=== PATIENT | male | born 1965 | race Caucasian/White ===

== ENCOUNTER 2019-12-19 08:43 | Emergency (ER) | payer OTHER ==
[~2019-12-19] VITALS: Ht 162.6 cm; Wt 121.1 kg
[~2019-12-19 08:43] MED LIST: CLINDAMYCIN HC150 MG PO
[2019-12-19] MEDS ORDERED: PREDNISONE5 MG PO (08:57)
[2019-12-19] MEDS ORDERED: IMURAN50 MG PO (08:57)
[2019-12-19] MEDS ORDERED: ORPHENADRINE CITRATE 30 MG/ML VIAL IM ONE (09:00)
[2019-12-19] MEDS ORDERED: HYDROCODONE/APAP 5MG-325MG TAB PO ONE (09:00)
[2019-12-19] MEDS ORDERED: HYDROCODONE/APAP 5MG-325MG TAB ONE (09:05)
[2019-12-19] MEDS ORDERED: ORPHENADRINE CITRATE 30 MG/ML VIAL ONE (09:06)
--- NOTE | 2019-12-19 09:09 | Emergency Department Note ---
History of Present Illnes History of Present Illness Chief Complaint: General Medicine Complaints History of Present Illness This is a 54 year old male PATIENT IN FROM HOME WITH COMPLAINTS OF RIGHT UPPER THIGH PAIN X 10 DAYS; STATES WENT TO URGENT CARE A WEEK AGO AND WAS GIVEN PAIN MEDICATION AND MUSCLE RELAXERS; PATIENT THEN SAW DR VALDEZ ON SATURDAY AND HAD XRAYS TAKEN AND WAS GIVEN DIFFERENT MEDICATION. PATIENT STATES THAT HE STILL HAS PAIN RATED 9/10. PATIENT APPEARS IN NO DISTRESS, RESP EVEN AND NONLABORED, AMBULATORY WITHOUT ASSISTANCE. Historian: Patient Arrival Mode: Car Preforming Machine Operator Required: No Onset (how long ago): day(s) (10) Location: RIGHT LATERAL THIGH Quality: PAIN Radiation: Reports non-radiation Severity: severe Onset quality: gradual Timing of current episode: constant Chronicity: new Context: Denies recent illness Relieving factors: none Exacerbating factors: movement Associated symptoms: Reports denies other symptoms Treatments prior to arrival: none Past Medical/Family History Physician Review I have reviewed the patient's past medical and family history. Any updates have been documented here. Past Medical History Recent Fever: No Clinical Suspicion of Infectio: No New/Unexplained Change in Ment: No Past Medical History: Diabetes, Liver Disease Past Surgical History: None Social History Smoking Cessation: Never Smoker Counseling Performed: No Alcohol Use: None Any Illegal Drug Use: No TB Exposure/Symptoms: No Physically hurt or threatened: No Family History Family history of heart diseas: No Other Last Tetanus: UNKNOWN Any Pre-Existing Lines (PICC,: No Review of Systems Review of Systems Constitutional: Reports no symptoms EENTM: Reports no symptoms Cardiovascular: Reports no symptoms Respiratory: Reports no symptoms Gastrointestinal: Reports no symptoms Genitourinary: Reports no symptoms Musculoskeletal: Reports as per HPI Integumentary: Reports no symptoms Neurological: Reports no symptoms Psychological: Reports no symptoms Endocrine: Reports no symptoms Hematological/Lymphatic: Reports no symptoms Physical Exam Related Data Allergies: Coded Allergies: No Known Allergies (Unverified , 12/19/19) Triage Vital Signs Vital Signs Date Time Temp Pulse Resp B/P (MAP) Pulse Ox O2 Delivery O2 Flow Rate FiO2 12/19/19 08:47 97.6 94 20 144/74 97 Room Air Vital signs reviewed: Yes Physical Exam CONSTITUTIONAL Constitutional: Present well-developed, Present well-nourished HENT HENT: Present normocephalic, Present atraumatic, Present oropharynx clear /moist, Present nose normal HENT L/R: Present left ext ear normal, Present right ext ear normal EYES Eyes: Reports PERRL, Reports conjunctivae normal NECK Neck: Present ROM normal PULMONARY Pulmonary: Present effort normal, Present breath sounds normal CARDIOVASCULAR Cardiovascular: Present regular rhythm, Present heart sounds normal, Present capillary refill normal, Present normal rate, Present palpable pulses, Present strong pulses GASTROINTESTINAL Abdominal: Present soft, Present nontender, Present bowel sounds normal GENITOURINARY Genitourinary: Present exam deferred SKIN Skin: Present warm, Present dry MUSCULOSKELETAL Musculoskeletal: Present ROM normal, Present tenderness (RIGHT LATERAL THIGH, NO CALF TENDERNESS, NO POSTERIOR UPPER LEG TTP), Present swelling (BILATERAL 1+ LE EDEMA) NEUROLOGICAL Neurological: Present alert, Present oriented x 3, Present no gross motor or sensory deficits PSYCHOLOGICAL Psychological: Present mood/affect normal, Present judgement normal Assessment & Plan Medical Decision Making MDM MUSCLE STRAIN - WILL GIVE NORCO 5 AND SHOT OF NORFLEX HERE Reassessment Reassessment DC HOME, DC FLEXERIL (SAYS IT IS NOT HELPING, JUST MAKES HIM SLEEPY), ROBAXIN Assessment & Plan Final Impression: (1) Muscle strain Depart Disposition: HOME, SELF-CARE Last Vital Signs Date Time Temp Pulse Resp B/P (MAP) Pulse Ox O2 Delivery O2 Flow Rate FiO2 12/19/19 08:47 97.6 94 20 144/74 97 Room Air Home Meds Reported Medications Prednisone (PREDNISONE) 5 Mg Tablet, 7.5 MG PO DAILY, #30 TAB 12/19/19 Azathioprine (IMURAN) 50 Mg Tablet, 75 MG PO DAILY 12/19/19 Discontinued Reported Medications Clindamycin Hcl (CLINDAMYCIN HCL) 150 Mg Capsule, 300 MG PO TID for 14 Days 10/08/16 Medications in the ED Orphenadrine Citrate 60 mg ONCE ONCE IM ; Start 12/19/19 at 09:00; Stop 12/19/19 at 09:01 Acetaminophen/ Hydrocodone Bitart 1 ea ONCE ONCE PO ; Start 12/19/19 at 09:00; Stop 12/19/19 at 09:01 Acetaminophen/ Hydrocodone Bitart 1 ea STK-MED ONCE .ROUTE ; Start 12/19/19 at 09:05; Stop 12/19/19 at 08:59; Status DC Orphenadrine Citrate 60 mg STK-MED ONCE .ROUTE ; Start 12/19/19 at 09:06; Stop 12/19/19 at 08:59; Status DC JOEY CHAPA MD Dec 19, 2019 09:09
== END 2019-12-19 09:14 | disposition home or self-care (01) ==
LOC: ER 09:00
DX: M79.651 Pain in right thigh (principal); S76.811A Strain of other specified muscles, fascia and tendons at thigh level, right thigh, initial encounter; E11.9 Type 2 diabetes mellitus without complications; K76.9 Liver disease, unspecified
CPT/HCPCS: 99283; J2360

== ENCOUNTER 2021-02-16 22:46 | Emergency (ER) | payer OTHER ==
[~2021-02-16] VITALS: Ht 162.6 cm; Wt 121.1 kg
[~2021-02-16 22:46] MED LIST changes: +IMURAN50 MG PO; +PREDNISONE5 MG PO
[2021-02-16] MEDS ORDERED: SOTROVIMAB 500 MG in SODIUM CHLORIDE 0.9% 100 ML IV ONE (23:00)
== END 2021-02-17 00:31 | disposition home or self-care (01) ==
LOC: ER 22:51
DX: U07.1 COVID-19 (principal); R05.9 Cough, unspecified; E11.9 Type 2 diabetes mellitus without complications; K76.9 Liver disease, unspecified
CPT/HCPCS: 99284

== ENCOUNTER 2021-06-20 12:28 | Inpatient (IN) | payer OTHER ==
[~2021-06-20] VITALS: Ht 162.6 cm; Wt 129.7 kg
[2021-06-20] MEDS ORDERED: BISMUTH SUBSALICYLATE 262 MG/15 ML 8OZ BTL PO PRN (14:30)
[2021-06-20] MEDS ORDERED: ONDANSETRON HCL INJ 2MG/ML 2ML 2 MG/ML VIAL IV PRN (14:30)
[2021-06-20] MEDS ORDERED: MAGNESIUM HYDROXIDE 30 ML UDC PO PRN (14:30)
[2021-06-20] MEDS ORDERED: LANTUS 3ML100 UNITS/ SC (15:01)
[2021-06-20] MEDS ORDERED: DOXYCYCLINE HY100 MG PO (15:01)
[2021-06-20] MEDS ORDERED: ZETIA10 MG PO (15:01)
[2021-06-20] MEDS ORDERED: LOSARTAN POTASS25 MG PO (15:01)
[2021-06-20] MEDS ORDERED: CIPRO250 MG PO (15:01)
[2021-06-20] MEDS ORDERED: GLIMEPIRIDE2 MG PO (15:01)
[2021-06-20] MEDS ORDERED: PREDNISONE10 MG PO (15:01)
[2021-06-20] MEDS ORDERED: HUMALOG100 UNIT/1 SC (15:01)
[2021-06-20] MEDS ORDERED: DEXTROSE 50% SYRINGE 50 ML IV PRN (15:15)
[2021-06-20 15:59] VITALS: BP 142/73
[2021-06-20 16:00] VITALS: BP 109/58
[2021-06-20 16:16] LABS: BASOPHILS # (AUTO) 0.1 (0.0-0.1); BASOPHILS % 0.6 % (0.0-1.0); EOSINOPHILS # (AUTO) 0.1 (0.0-0.4); EOSINOPHILS % 0.9 % (0.0-6.0); HEMATOCRIT 37.4 % (38.2-49.6); HEMOGLOBIN 12.4 g/dL (14.0-18.0); LYMPHOCYTES # (AUTO) 1.4 (1.0-3.2); MEAN CORPUSCULAR HEMOGLOBIN 28.8 pg (28-32); MEAN CORPUSCULAR HGB CONC 33.2 g/dL (31-35); MONOCYTES # (AUTO) 0.9 (0.2-0.8); MONOCYTES % 7.8 % (4.4-11.3); NEUTROPHILS # (AUTO) 7.8 (2.1-6.9); NEUTROPHILS % 71.7 % (38.7-80.0); PLATELET COUNT 343 x10e3/uL (140-360); RED CELL DISTRIBUTION WIDTH 12.4 % (11.7-14.4)
[2021-06-20 16:38] LABS: ALBUMIN 2.4 g/dL (3.5-5.0); ALBUMIN/GLOBULIN RATIO 0.5 (0.8-2.0); ANION GAP 14.3 mmol/L (8-16); CALCIUM 9.5 mg/dL (8.4-10.2); CREATININE, SERUM 1.45 mg/dL (0.72-1.25); POTASSIUM 4.3 mmol/L (3.5-5.1)
[2021-06-20] MEDS: INSULIN LISPRO 100 UNIT/1 ML 3ML VIAL SQ SCH ×2 (17:09→21:49)
[2021-06-20] MEDS ORDERED: SODIUM CHLORIDE 0.9% 250ML 250 ML ONE (17:11)
[2021-06-20 17:39] LABS: EOSINOPHILS % (MANUAL) 2 % (0-7); LYMPHOCYTES % (MANUAL) 13 % (19-48); MONOCYTES % (MANUAL) 1 % (3.4-9.0); NEUTROPHILS % (MANUAL) 77 % (40-74); TOXIC GRANULATION SLIGHT
[2021-06-20 17:44] LABS: PLATELET ESTIMATE ADEQUATE; PLATELET MORPHOLOGY COMMENT NORMAL; RBC MORPHOLOGY COMMENT NORMAL
[2021-06-20 20:00] VITALS: BP 154/96
[2021-06-20 21:00] VITALS: BP 139/85
[2021-06-21 00:24] VITALS: BP 139/85
[2021-06-21] MEDS ORDERED: HYDROCODONE/APAP 10MG-325MG TAB PO PRN (05:15)
[2021-06-21] MEDS: ACETAMINOPHEN 325 MG TAB PO PRN ×2 (05:25→22:07)
[2021-06-21 07:57] VITALS: BP 158/79
[2021-06-21] MEDS: EZETIMIBE 10 MG TAB PO SCH (08:12)
[2021-06-21] MEDS: LOSARTAN POTASSIUM 25 MG TAB PO SCH (08:12)
[2021-06-21] MEDS: PREDNISONE 10 MG TAB PO SCH (08:12)
[2021-06-21] MEDS: GLIMEPIRIDE 2 MG TAB PO SCH (08:13)
[2021-06-21] MEDS: INSULIN LISPRO 100 UNIT/1 ML 3ML VIAL SQ SCH ×4 (08:25→21:19)
[2021-06-21 12:14] VITALS: BP 172/84
[2021-06-21] MEDS: HYDRALAZINE HCL 20 MG/ML VIAL IV PRN (12:50)
[2021-06-21] MEDS: Vancomycin IV 1.25 GM in SODIUM CHLORIDE 0.9% 250ML 250 ML IV SCH (15:50)
[2021-06-21 20:04] VITALS: BP 142/73
[2021-06-21 20:30] VITALS: BP 142/73
[2021-06-21] MEDS: INSULIN GLARGINE 100 UNITS/ML VIAL SQ SCH (21:19)
[2021-06-22 05:42] VITALS: BP 155/82
[2021-06-22] MEDS: INSULIN LISPRO 100 UNIT/1 ML 3ML VIAL SQ SCH ×4 (07:30→21:30)
[2021-06-22] MEDS: EZETIMIBE 10 MG TAB PO SCH (08:21)
[2021-06-22] MEDS: GLIMEPIRIDE 2 MG TAB PO SCH (08:21)
[2021-06-22] MEDS: PREDNISONE 10 MG TAB PO SCH (08:21)
[2021-06-22] MEDS: LOSARTAN POTASSIUM 25 MG TAB PO SCH (08:21)
[2021-06-22] MEDS: ACETAMINOPHEN 325 MG TAB PO PRN ×2 (08:22→13:30)
[2021-06-22 08:25] VITALS: BP 134/66
[2021-06-22] MEDS: Vancomycin IV 1.25 GM in SODIUM CHLORIDE 0.9% 250ML 250 ML IV SCH (13:23)
[2021-06-22 20:12] VITALS: BP 126/73
[2021-06-22 21:00] VITALS: BP 126/73
[2021-06-22] MEDS: INSULIN GLARGINE 100 UNITS/ML VIAL SQ SCH (21:30)
[2021-06-22 23:59] VITALS: BP 112/58
[2021-06-23 05:37] VITALS: BP 112/56
[2021-06-23 06:14] LABS: BASOPHILS # (AUTO) 0.1 (0.0-0.1); BASOPHILS % 0.6 % (0.0-1.0); EOSINOPHILS # (AUTO) 0.1 (0.0-0.4); EOSINOPHILS % 1.6 % (0.0-6.0); HEMATOCRIT 34.1 % (38.2-49.6); HEMOGLOBIN 11.2 g/dL (14.0-18.0); LYMPHOCYTES # (AUTO) 1.4 (1.0-3.2); LYMPHOCYTES % 16.4 % (18.0-39.1); MEAN CORPUSCULAR HEMOGLOBIN 28.6 pg (28-32); MEAN CORPUSCULAR HGB CONC 32.8 g/dL (31-35); MEAN CORPUSCULAR VOLUME 87.2 fL (81-99); MONOCYTES # (AUTO) 0.7 (0.2-0.8); MONOCYTES % 8.4 % (4.4-11.3); NEUTROPHILS # (AUTO) 5.9 (2.1-6.9); NEUTROPHILS % 68.2 % (38.7-80.0); PLATELET COUNT 314 x10e3/uL (140-360); RED BLOOD COUNT 3.91 x10e6/uL (4.3-5.7); RED CELL DISTRIBUTION WIDTH 12.3 % (11.7-14.4)
[2021-06-23 06:35] LABS: ALBUMIN 2.3 g/dL (3.5-5.0); ALBUMIN/GLOBULIN RATIO 0.6 (0.8-2.0); ANION GAP 10.9 mmol/L (8-16); CALCIUM 8.5 mg/dL (8.4-10.2); CREATININE, SERUM 1.17 mg/dL (0.72-1.25); POTASSIUM 3.9 mmol/L (3.5-5.1)
[2021-06-23] MEDS: INSULIN LISPRO 100 UNIT/1 ML 3ML VIAL SQ SCH ×4 (07:30→21:10)
[2021-06-23 07:54] VITALS: BP 144/91
[2021-06-23 08:06] VITALS: BP 144/91
[2021-06-23] MEDS ORDERED: BUPIVACAINE HCL 0.5% INJ 30 ML VIAL INJ ONE (08:41)
[2021-06-23] MEDS ORDERED: DEXAMETHASONE SOD PHOS INJ 4 MG/ML SDV ONE ×2 (08:41→11:57)
[2021-06-23] MEDS ORDERED: Vancomycin IV 1 GM VIAL ONE (08:41)
[2021-06-23] MEDS ORDERED: NEOSTIGMINE 1 MG/ML 10ML VIAL ONE (08:41)
[2021-06-23] MEDS: GLIMEPIRIDE 2 MG TAB PO SCH (11:14)
[2021-06-23] MEDS: PREDNISONE 10 MG TAB PO SCH (11:14)
[2021-06-23] MEDS: EZETIMIBE 10 MG TAB PO SCH (11:14)
[2021-06-23] MEDS: LOSARTAN POTASSIUM 25 MG TAB PO SCH (11:14)
[2021-06-23 11:38] VITALS: BP 156/80
[2021-06-23] MEDS ORDERED: SEVOFLURANE INHAL SOLN 250 ML PEN BTL ONE (11:57)
[2021-06-23] MEDS ORDERED: PROPOFOL IV EMULSION 10 MG/ML 20 ML VIAL ONE (11:57)
[2021-06-23] MEDS ORDERED: ONDANSETRON HCL INJ 2MG/ML 2ML 2 MG/ML VIAL ONE (11:57)
[2021-06-23] MEDS ORDERED: LIDOCAINE HCL 2% LOCAL INJ 5 ML SDV VIAL INJ ONE (11:57)
[2021-06-23] MEDS ORDERED: POVIDONE IODINE 0.05% 0.05 % ML PO ONE (11:57)
[2021-06-23] MEDS ORDERED: KETOROLAC TROMETHAMINE 30 MG/ML VIAL ONE (11:57)
[2021-06-23] MEDS ORDERED: MIDAZOLAM HCL 2 MG/2 ML VIAL ONE (12:46)
[2021-06-23] MEDS ORDERED: FENTANYL CITRATE/PF 100MCG/2 ML INJ ONE (12:46)
[2021-06-23] MEDS: Vancomycin IV 1.25 GM in SODIUM CHLORIDE 0.9% 250ML 250 ML IV SCH (14:56)
[2021-06-23] MEDS ORDERED: SODIUM CHLORIDE 0.9% 250ML 250 ML ONE (15:02)
[2021-06-23 15:44] VITALS: BP 148/84
[2021-06-23 20:00] VITALS: BP 164/92
[2021-06-23] MEDS: INSULIN GLARGINE 100 UNITS/ML VIAL SQ SCH (21:11)
[2021-06-24] VITALS (8 sets, daily range): BP systolic 137–161; BP diastolic 66–94
[2021-06-24] MEDS: INSULIN LISPRO 100 UNIT/1 ML 3ML VIAL SQ SCH ×4 (07:30→22:19)
[2021-06-24] MEDS: LOSARTAN POTASSIUM 25 MG TAB PO SCH (08:35)
[2021-06-24] MEDS: PREDNISONE 10 MG TAB PO SCH (08:35)
[2021-06-24] MEDS: EZETIMIBE 10 MG TAB PO SCH (08:35)
[2021-06-24] MEDS: GLIMEPIRIDE 2 MG TAB PO SCH (08:35)
[2021-06-24] MEDS: ACETAMINOPHEN 325 MG TAB PO PRN (08:48)
[2021-06-24] MEDS: Vancomycin IV 1.25 GM in SODIUM CHLORIDE 0.9% 250ML 250 ML IV SCH (15:04)
[2021-06-24] MEDS: INSULIN GLARGINE 100 UNITS/ML VIAL SQ SCH (22:20)
[2021-06-25] VITALS (7 sets, daily range): BP systolic 128–177; BP diastolic 57–96
[2021-06-25] MEDS: ACETAMINOPHEN 325 MG TAB PO PRN ×3 (00:06→22:27)
[2021-06-25] MEDS: INSULIN LISPRO 100 UNIT/1 ML 3ML VIAL SQ SCH ×4 (07:30→21:39)
[2021-06-25] MEDS: LOSARTAN POTASSIUM 25 MG TAB PO SCH (09:35)
[2021-06-25] MEDS: GLIMEPIRIDE 2 MG TAB PO SCH (09:35)
[2021-06-25] MEDS: EZETIMIBE 10 MG TAB PO SCH (09:36)
[2021-06-25] MEDS: PREDNISONE 10 MG TAB PO SCH (09:36)
[2021-06-25] MEDS: Vancomycin IV 1.25 GM in SODIUM CHLORIDE 0.9% 250ML 250 ML IV SCH (13:48)
[2021-06-25] MEDS: INSULIN GLARGINE 100 UNITS/ML VIAL SQ SCH (21:39)
[2021-06-25] MEDS: HYDRALAZINE HCL 20 MG/ML VIAL IV PRN (21:54)
[2021-06-26] VITALS (9 sets, daily range): BP systolic 126–168; BP diastolic 60–93
[2021-06-26] MEDS: ACETAMINOPHEN 325 MG TAB PO PRN ×3 (04:51→22:58)
[2021-06-26 04:59] LABS: BASOPHILS % 0.5 % (0.0-1.0); EOSINOPHILS # (AUTO) 0.1 (0.0-0.4); EOSINOPHILS % 1.4 % (0.0-6.0); HEMATOCRIT 32.3 % (38.2-49.6); HEMOGLOBIN 10.6 g/dL (14.0-18.0); LYMPHOCYTES # (AUTO) 1.5 (1.0-3.2); LYMPHOCYTES % 17.5 % (18.0-39.1); MEAN CORPUSCULAR HEMOGLOBIN 28.7 pg (28-32); MEAN CORPUSCULAR HGB CONC 32.8 g/dL (31-35); MEAN CORPUSCULAR VOLUME 87.5 fL (81-99); MONOCYTES # (AUTO) 0.8 (0.2-0.8); MONOCYTES % 9.1 % (4.4-11.3); NEUTROPHILS # (AUTO) 5.8 (2.1-6.9); NEUTROPHILS % 69.1 % (38.7-80.0); PLATELET COUNT 243 x10e3/uL (140-360); RED BLOOD COUNT 3.69 x10e6/uL (4.3-5.7); RED CELL DISTRIBUTION WIDTH 12.5 % (11.7-14.4)
[2021-06-26 05:27] LABS: ALBUMIN 2.2 g/dL (3.5-5.0); ALBUMIN/GLOBULIN RATIO 0.6 (0.8-2.0); ANION GAP 10.9 mmol/L (8-16); CALCIUM 8.3 mg/dL (8.4-10.2); CREATININE, SERUM 0.89 mg/dL (0.72-1.25); POTASSIUM 3.9 mmol/L (3.5-5.1)
[2021-06-26] MEDS: INSULIN LISPRO 100 UNIT/1 ML 3ML VIAL SQ SCH ×4 (07:30→21:40)
[2021-06-26] MEDS: LOSARTAN POTASSIUM 25 MG TAB PO SCH (08:52)
[2021-06-26] MEDS: GLIMEPIRIDE 2 MG TAB PO SCH (08:52)
[2021-06-26] MEDS: PREDNISONE 10 MG TAB PO SCH (08:52)
[2021-06-26] MEDS: EZETIMIBE 10 MG TAB PO SCH (08:52)
[2021-06-26] MEDS: Vancomycin IV 1.25 GM in SODIUM CHLORIDE 0.9% 250ML 250 ML IV SCH (13:00)
[2021-06-26] MEDS: INSULIN GLARGINE 100 UNITS/ML VIAL SQ SCH (21:40)
[2021-06-27] VITALS: BP 151/77
[2021-06-27 04:00] VITALS: BP 124/61
[2021-06-27] MEDS: INSULIN LISPRO 100 UNIT/1 ML 3ML VIAL SQ SCH ×2 (07:30→14:02)
[2021-06-27 07:57] VITALS: BP 177/93
[2021-06-27] MEDS: GLIMEPIRIDE 2 MG TAB PO SCH (08:57)
[2021-06-27] MEDS: PREDNISONE 10 MG TAB PO SCH (08:59)
[2021-06-27] MEDS: EZETIMIBE 10 MG TAB PO SCH (08:59)
[2021-06-27] MEDS: LOSARTAN POTASSIUM 25 MG TAB PO SCH (09:00)
[2021-06-27] MEDS: HYDRALAZINE HCL 20 MG/ML VIAL IV PRN (09:07)
[2021-06-27 11:58] VITALS: BP 149/78
[2021-06-27] MEDS: Vancomycin IV 1.25 GM in SODIUM CHLORIDE 0.9% 250ML 250 ML IV SCH (14:01)
[2021-06-27 15:31] VITALS: BP 161/89
== END 2021-06-27 18:12 | disposition home or self-care (01) | DRG 623 ==
LOC: MED/SURG2 13:19
PROVIDERS: ADMIT Internal Medicine; ATTEND Internal Medicine
PROC: 0JDR0ZZ Extraction of Left Foot Subcutaneous Tissue and Fascia, Open Approach (ICD-10-PCS; 2021-06-23)
PROC: 0JBR0ZZ Excision of Left Foot Subcutaneous Tissue and Fascia, Open Approach (ICD-10-PCS; 2021-06-23)
PROC: 0QBP0ZX Excision of Left Metatarsal, Open Approach, Diagnostic (ICD-10-PCS; 2021-06-23)
PROC: 0HBNXZZ Excision of Left Foot Skin, External Approach (ICD-10-PCS; 2021-06-23)
PROC: 02HV33Z Insertion of Infusion Device into Superior Vena Cava, Percutaneous Approach (ICD-10-PCS; principal; 2021-06-23 09:34)
DX: E11.69 Type 2 diabetes mellitus with other specified complication (principal); E11.52 Type 2 diabetes mellitus with diabetic peripheral angiopathy with gangrene; Z68.42 Body mass index [BMI] 45.0-49.9, adult; M86.8X7 Other osteomyelitis, ankle and foot; I96 Gangrene, not elsewhere classified; E11.621 Type 2 diabetes mellitus with foot ulcer; E11.22 Type 2 diabetes mellitus with diabetic chronic kidney disease; I12.9 Hypertensive chronic kidney disease with stage 1 through stage 4 chronic kidney disease, or unspecified chronic kidney disease; N18.30 Chronic kidney disease, stage 3 unspecified; Z79.899 Other long term (current) drug therapy; E66.01 Morbid (severe) obesity due to excess calories; E78.5 Hyperlipidemia, unspecified; B95.2 Enterococcus as the cause of diseases classified elsewhere; B95.5 Unspecified streptococcus as the cause of diseases classified elsewhere; Z20.822 Contact with and (suspected) exposure to COVID-19; B95.8 Unspecified staphylococcus as the cause of diseases classified elsewhere
CPT/HCPCS: 36415; 36569; 71045; 76000; 80053; 80202; 82948; 83036; 85025; 87040; 87071; 87075; 87186; 87205; 93005; 93922; 93926; 93970; 94799; 96372; 99251; J0360; J1100; J1815; J1885; J2001; J2250; J2405; J2543; J2710; J3010; J3370; J7050; J7512; U0002

== ENCOUNTER → 2021-06-29 | Outpatient (CLI) | payer OTHER ==
[~2021-06-29] MED LIST changes: +CIPRO250 MG PO; +DOXYCYCLINE HY100 MG PO; +GLIMEPIRIDE2 MG PO; +HUMALOG100 UNIT/1 SC; +LANTUS 3ML100 UNITS/ SC; +LOSARTAN POTASS25 MG PO; +PREDNISONE10 MG PO; +ZETIA10 MG PO
== END ==
LOC: WCC 08:39
PROVIDERS: ATTEND Podiatrist Foot & Ankle Surgery
DX: T81.89XA Other complications of procedures, not elsewhere classified, initial encounter (principal); Y83.8 Other surgical procedures as the cause of abnormal reaction of the patient, or of later complication, without mention of misadventure at the time of the procedure; M86.172 Other acute osteomyelitis, left ankle and foot; E11.65 Type 2 diabetes mellitus with hyperglycemia; L03.818 Cellulitis of other sites; R60.0 Localized edema; I10 Essential (primary) hypertension; E78.5 Hyperlipidemia, unspecified; B96.89 Other specified bacterial agents as the cause of diseases classified elsewhere; E66.01 Morbid (severe) obesity due to excess calories

== ENCOUNTER → 2021-07-04 | Outpatient (CLI) | payer OTHER | LOC: WCC 10:30 | PROVIDERS: ATTEND Podiatrist Foot & Ankle Surgery | DX: T81.89XA Other complications of procedures, not elsewhere classified, initial encounter (principal); Y83.8 Other surgical procedures as the cause of abnormal reaction of the patient, or of later complication, without mention of misadventure at the time of the procedure; M86.172 Other acute osteomyelitis, left ankle and foot; E11.65 Type 2 diabetes mellitus with hyperglycemia; L03.818 Cellulitis of other sites; R60.0 Localized edema; I10 Essential (primary) hypertension; E78.5 Hyperlipidemia, unspecified; B96.89 Other specified bacterial agents as the cause of diseases classified elsewhere; E66.01 Morbid (severe) obesity due to excess calories | CPT/HCPCS: 83036; 84134 ==

== ENCOUNTER → 2021-07-11 | Outpatient (CLI) | payer OTHER | LOC: WCC 13:43 | PROVIDERS: ATTEND Podiatrist Foot & Ankle Surgery | DX: T81.89XA Other complications of procedures, not elsewhere classified, initial encounter (principal); Y83.8 Other surgical procedures as the cause of abnormal reaction of the patient, or of later complication, without mention of misadventure at the time of the procedure; E11.621 Type 2 diabetes mellitus with foot ulcer; E11.65 Type 2 diabetes mellitus with hyperglycemia; M86.172 Other acute osteomyelitis, left ankle and foot; L97.421 Non-pressure chronic ulcer of left heel and midfoot limited to breakdown of skin; L03.818 Cellulitis of other sites; R60.0 Localized edema; I10 Essential (primary) hypertension; E78.5 Hyperlipidemia, unspecified; B96.89 Other specified bacterial agents as the cause of diseases classified elsewhere; E66.01 Morbid (severe) obesity due to excess calories ==

== ENCOUNTER 2021-07-15 20:39 | Observation (INO) | payer OTHER ==
[~2021-07-15] VITALS: Ht 162.6 cm; Wt 129.7 kg
[2021-07-15] MEDS ORDERED: ONDANSETRON HCL INJ 2MG/ML 2ML 2 MG/ML VIAL IV PRN (21:00)
[2021-07-15] MEDS ORDERED: SODIUM CHLORIDE FLUSH 10 ML SYR INJ PRN (21:00)
[2021-07-15] MEDS ORDERED: DEXTROSE 50% SYRINGE 50 ML IV PRN (21:00)
[2021-07-15] MEDS: INSULIN REGULAR, HUMAN 100 UNIT/1 ML SQ SCH (21:00)
[2021-07-15 21:08] LABS: BASOPHILS % 0.3 % (0.0-1.0); EOSINOPHILS # (AUTO) 0.1 (0.0-0.4); HEMATOCRIT 31.1 % (38.2-49.6); HEMOGLOBIN 10.3 g/dL (14.0-18.0); LYMPHOCYTES # (AUTO) 0.8 (1.0-3.2); LYMPHOCYTES % 11.4 % (18.0-39.1); MEAN CORPUSCULAR HEMOGLOBIN 28.2 pg (28-32); MEAN CORPUSCULAR HGB CONC 33.1 g/dL (31-35); MEAN CORPUSCULAR VOLUME 85.2 fL (81-99); MONOCYTES % 15.3 % (4.4-11.3); NEUTROPHILS # (AUTO) 4.6 (2.1-6.9); NEUTROPHILS % 67.5 % (38.7-80.0); PLATELET COUNT 176 x10e3/uL (140-360); RED BLOOD COUNT 3.65 x10e6/uL (4.3-5.7); RED CELL DISTRIBUTION WIDTH 13.9 % (11.7-14.4)
[2021-07-15 21:33] LABS: ALBUMIN 2.3 g/dL (3.5-5.0); CALCIUM 8.8 mg/dL (8.4-10.2); POTASSIUM 4.2 mmol/L (3.5-5.1)
[2021-07-15 22:11] LABS: ANION GAP 15.2 mmol/L (8-16); CREATININE, SERUM 1.52 mg/dL (0.72-1.25)
[2021-07-15 22:12] LABS: ALBUMIN/GLOBULIN RATIO 0.5 (0.8-2.0)
[2021-07-15] MEDS: Vancomycin IV 1 GM in SODIUM CHLORIDE 0.9% 250ML 250 ML IV SCH (23:19)
[2021-07-16] MEDS ORDERED: ACETAMINOPHEN 325 MG TAB PO ONE (03:15)
[2021-07-16] MEDS ORDERED: ACETAMINOPHEN 325 MG TAB ONE (03:19)
[2021-07-16] MEDS: INSULIN REGULAR, HUMAN 100 UNIT/1 ML SQ SCH ×4 (07:30→21:00)
[2021-07-16] MEDS: PREDNISONE 10 MG TAB PO SCH (09:00)
[2021-07-16] MEDS: LOSARTAN POTASSIUM 25 MG TAB PO SCH (09:00)
[2021-07-16] MEDS ORDERED: GLIMEPIRIDE 2 MG TAB PO SCH (09:00)
[2021-07-16] MEDS: Vancomycin IV 1 GM in SODIUM CHLORIDE 0.9% 250ML 250 ML IV SCH ×2 (09:25→22:00)
[2021-07-16 09:34] LABS: BASOPHILS % 0.5 % (0.0-1.0); EOSINOPHILS # (AUTO) 0.1 (0.0-0.4); EOSINOPHILS % 1.3 % (0.0-6.0); HEMATOCRIT 30.7 % (38.2-49.6); LYMPHOCYTES # (AUTO) 0.7 (1.0-3.2); LYMPHOCYTES % 12.4 % (18.0-39.1); MEAN CORPUSCULAR HEMOGLOBIN 27.9 pg (28-32); MEAN CORPUSCULAR HGB CONC 32.6 g/dL (31-35); MEAN CORPUSCULAR VOLUME 85.8 fL (81-99); MONOCYTES # (AUTO) 0.9 (0.2-0.8); MONOCYTES % 15.3 % (4.4-11.3); NEUTROPHILS # (AUTO) 3.9 (2.1-6.9); NEUTROPHILS % 65.8 % (38.7-80.0); PLATELET COUNT 176 x10e3/uL (140-360); RED BLOOD COUNT 3.58 x10e6/uL (4.3-5.7); RED CELL DISTRIBUTION WIDTH 13.8 % (11.7-14.4)
[2021-07-16 10:11] LABS: ALBUMIN 2.1 g/dL (3.5-5.0); ALBUMIN/GLOBULIN RATIO 0.5 (0.8-2.0); ANION GAP 13.9 mmol/L (8-16); CALCIUM 8.3 mg/dL (8.4-10.2); CREATININE, SERUM 1.32 mg/dL (0.72-1.25); POTASSIUM 3.9 mmol/L (3.5-5.1)
[2021-07-16] MEDS: EZETIMIBE 10 MG TAB PO SCH (10:40)
[2021-07-16 17:12] VITALS: BP 154/77
[2021-07-16 17:19] VITALS: BP 154/77
[2021-07-16 20:00] VITALS: BP_SYST 112; BP_SYST 145; BP_DIAS 71; BP_DIAS 80
[2021-07-16 21:00] VITALS: BP 112/71
[2021-07-16] MEDS ORDERED: SODIUM CHLORIDE 0.9% 250ML 250 ML ONE (22:34)
[2021-07-17] VITALS: BP 124/77
[2021-07-17 04:00] VITALS: BP_SYST 120; BP_SYST 130; BP_DIAS 53; BP_DIAS 73
[2021-07-17] MEDS: INSULIN REGULAR, HUMAN 100 UNIT/1 ML SQ SCH ×3 (07:30→16:30)
[2021-07-17] MEDS ORDERED: SODIUM CHLORIDE 0.9% 250ML 250 ML ONE (07:31)
[2021-07-17 07:48] VITALS: BP 137/79
[2021-07-17 08:00] VITALS: BP 137/79
[2021-07-17] MEDS ORDERED: GLIMEPIRIDE 2 MG TAB PO SCH (08:00)
[2021-07-17] MEDS: LOSARTAN POTASSIUM 25 MG TAB PO SCH (08:10)
[2021-07-17] MEDS: PREDNISONE 10 MG TAB PO SCH (08:11)
[2021-07-17] MEDS: EZETIMIBE 10 MG TAB PO SCH (08:11)
[2021-07-17] MEDS: Vancomycin IV 1 GM in SODIUM CHLORIDE 0.9% 250ML 250 ML IV SCH (10:11)
[2021-07-17 11:27] VITALS: BP 159/87
[2021-07-17 16:37] VITALS: BP 146/98
[2021-07-17] MEDS ORDERED: ONDANSETRON HCL 4 MG ORAL DISINTEGRATING TAB PO PRN (18:00)
== END 2021-07-17 18:40 | disposition home or self-care (01) ==
LOC: ER 20:43 → ERHOLD 21:42 → UNDODISOB 07-16 16:50 → MED/SURG2 07-16 16:50
PROVIDERS: ADMIT Internal Medicine; ATTEND Internal Medicine
DX: E11.621 Type 2 diabetes mellitus with foot ulcer (principal); E11.22 Type 2 diabetes mellitus with diabetic chronic kidney disease; I12.9 Hypertensive chronic kidney disease with stage 1 through stage 4 chronic kidney disease, or unspecified chronic kidney disease; N18.30 Chronic kidney disease, stage 3 unspecified; E78.5 Hyperlipidemia, unspecified; K76.89 Other specified diseases of liver; M35.89 Other specified systemic involvement of connective tissue; Z82.49 Family history of ischemic heart disease and other diseases of the circulatory system; E11.69 Type 2 diabetes mellitus with other specified complication; M86.8X7 Other osteomyelitis, ankle and foot; D64.9 Anemia, unspecified; E66.01 Morbid (severe) obesity due to excess calories; Z68.42 Body mass index [BMI] 45.0-49.9, adult; Z20.822 Contact with and (suspected) exposure to COVID-19; Z79.84 Long term (current) use of oral hypoglycemic drugs; Z79.4 Long term (current) use of insulin
CPT/HCPCS: 36415; 80053; 80202; 82948; 85025; 87040; 99251; 99284; G0378; J1817; J2543; J3370; J7050; J7512; U0002

== ENCOUNTER → 2021-07-25 | Outpatient (CLI) | payer OTHER | LOC: WCC 15:31 | PROVIDERS: ATTEND Podiatrist Foot & Ankle Surgery | DX: T81.89XA Other complications of procedures, not elsewhere classified, initial encounter (principal); Y83.8 Other surgical procedures as the cause of abnormal reaction of the patient, or of later complication, without mention of misadventure at the time of the procedure; M86.172 Other acute osteomyelitis, left ankle and foot; E11.621 Type 2 diabetes mellitus with foot ulcer; E11.65 Type 2 diabetes mellitus with hyperglycemia; L97.421 Non-pressure chronic ulcer of left heel and midfoot limited to breakdown of skin; L03.818 Cellulitis of other sites; R60.0 Localized edema; I10 Essential (primary) hypertension; E78.5 Hyperlipidemia, unspecified; B96.89 Other specified bacterial agents as the cause of diseases classified elsewhere; E66.01 Morbid (severe) obesity due to excess calories ==

== ENCOUNTER → 2021-07-28 | Outpatient (CLI) | payer OTHER | LOC: WCC 11:46 | PROVIDERS: ATTEND Podiatrist Foot & Ankle Surgery | DX: T81.89XA Other complications of procedures, not elsewhere classified, initial encounter (principal); Y83.8 Other surgical procedures as the cause of abnormal reaction of the patient, or of later complication, without mention of misadventure at the time of the procedure; M86.172 Other acute osteomyelitis, left ankle and foot; E11.621 Type 2 diabetes mellitus with foot ulcer; E11.65 Type 2 diabetes mellitus with hyperglycemia; L97.421 Non-pressure chronic ulcer of left heel and midfoot limited to breakdown of skin; L03.818 Cellulitis of other sites; R60.0 Localized edema; I10 Essential (primary) hypertension; E78.5 Hyperlipidemia, unspecified; E66.01 Morbid (severe) obesity due to excess calories; B96.89 Other specified bacterial agents as the cause of diseases classified elsewhere | CPT/HCPCS: 36415; 82948 ==

== ENCOUNTER → 2021-07-31 | Outpatient (CLI) | payer OTHER | LOC: WCC 13:55 | PROVIDERS: ATTEND Podiatrist Foot & Ankle Surgery | DX: T81.89XA Other complications of procedures, not elsewhere classified, initial encounter (principal); Y83.8 Other surgical procedures as the cause of abnormal reaction of the patient, or of later complication, without mention of misadventure at the time of the procedure; E11.621 Type 2 diabetes mellitus with foot ulcer; E11.65 Type 2 diabetes mellitus with hyperglycemia; M86.172 Other acute osteomyelitis, left ankle and foot; L03.818 Cellulitis of other sites; L97.421 Non-pressure chronic ulcer of left heel and midfoot limited to breakdown of skin; B96.89 Other specified bacterial agents as the cause of diseases classified elsewhere; R60.0 Localized edema; I10 Essential (primary) hypertension; E78.5 Hyperlipidemia, unspecified; E66.01 Morbid (severe) obesity due to excess calories ==

== ENCOUNTER → 2021-07-31 | Outpatient (CLI) | payer OTHER | LOC: RAD 15:28 | PROVIDERS: ATTEND Podiatrist Foot & Ankle Surgery | DX: E11.621 Type 2 diabetes mellitus with foot ulcer (principal); L97.421 Non-pressure chronic ulcer of left heel and midfoot limited to breakdown of skin | CPT/HCPCS: 93971 ==

== ENCOUNTER → 2021-08-01 | Outpatient (CLI) | payer OTHER | LOC: WCC 14:42 | PROVIDERS: ATTEND Podiatrist Foot & Ankle Surgery | DX: T81.89XA Other complications of procedures, not elsewhere classified, initial encounter (principal); Y83.8 Other surgical procedures as the cause of abnormal reaction of the patient, or of later complication, without mention of misadventure at the time of the procedure; M86.172 Other acute osteomyelitis, left ankle and foot; E11.621 Type 2 diabetes mellitus with foot ulcer; E11.65 Type 2 diabetes mellitus with hyperglycemia; L97.421 Non-pressure chronic ulcer of left heel and midfoot limited to breakdown of skin; L03.818 Cellulitis of other sites; R60.0 Localized edema; I10 Essential (primary) hypertension; E78.5 Hyperlipidemia, unspecified; B96.89 Other specified bacterial agents as the cause of diseases classified elsewhere; E66.01 Morbid (severe) obesity due to excess calories ==

== ENCOUNTER → 2021-08-08 | Outpatient (CLI) | payer OTHER | LOC: WCC 10:51 | PROVIDERS: ATTEND Podiatrist Foot & Ankle Surgery | DX: T81.89XA Other complications of procedures, not elsewhere classified, initial encounter (principal); Y83.8 Other surgical procedures as the cause of abnormal reaction of the patient, or of later complication, without mention of misadventure at the time of the procedure; M86.172 Other acute osteomyelitis, left ankle and foot; E11.621 Type 2 diabetes mellitus with foot ulcer; E11.65 Type 2 diabetes mellitus with hyperglycemia; L97.421 Non-pressure chronic ulcer of left heel and midfoot limited to breakdown of skin; L97.428 Non-pressure chronic ulcer of left heel and midfoot with other specified severity; L03.818 Cellulitis of other sites; R60.0 Localized edema; I10 Essential (primary) hypertension; E78.5 Hyperlipidemia, unspecified; B96.89 Other specified bacterial agents as the cause of diseases classified elsewhere; E66.01 Morbid (severe) obesity due to excess calories ==

== ENCOUNTER → 2021-08-08 | Outpatient (CLI) | payer OTHER | LOC: DX 12:45 | PROVIDERS: ATTEND Internal Medicine Infectious Disease | DX: L03.115 Cellulitis of right lower limb (principal); L03.116 Cellulitis of left lower limb; A49.01 Methicillin susceptible Staphylococcus aureus infection, unspecified site; R22.41 Localized swelling, mass and lump, right lower limb | CPT/HCPCS: 36568 ==

== ENCOUNTER → 2021-08-11 | Outpatient (CLI) | payer OTHER | LOC: WCC 14:56 | PROVIDERS: ATTEND Podiatrist Foot & Ankle Surgery | DX: E11.621 Type 2 diabetes mellitus with foot ulcer (principal); E11.65 Type 2 diabetes mellitus with hyperglycemia; Y83.8 Other surgical procedures as the cause of abnormal reaction of the patient, or of later complication, without mention of misadventure at the time of the procedure; M86.172 Other acute osteomyelitis, left ankle and foot; L97.428 Non-pressure chronic ulcer of left heel and midfoot with other specified severity; L97.421 Non-pressure chronic ulcer of left heel and midfoot limited to breakdown of skin; L03.818 Cellulitis of other sites; R60.0 Localized edema; I10 Essential (primary) hypertension; E78.5 Hyperlipidemia, unspecified; B96.89 Other specified bacterial agents as the cause of diseases classified elsewhere; E66.01 Morbid (severe) obesity due to excess calories ==

== ENCOUNTER → 2021-08-15 | Outpatient (CLI) | payer OTHER | LOC: WCC 10:21 | PROVIDERS: ATTEND Podiatrist Foot & Ankle Surgery | DX: E11.621 Type 2 diabetes mellitus with foot ulcer (principal); E11.65 Type 2 diabetes mellitus with hyperglycemia; Y83.8 Other surgical procedures as the cause of abnormal reaction of the patient, or of later complication, without mention of misadventure at the time of the procedure; M86.172 Other acute osteomyelitis, left ankle and foot; L03.818 Cellulitis of other sites; L97.421 Non-pressure chronic ulcer of left heel and midfoot limited to breakdown of skin; L97.428 Non-pressure chronic ulcer of left heel and midfoot with other specified severity; R60.0 Localized edema; I10 Essential (primary) hypertension; E78.5 Hyperlipidemia, unspecified; E66.01 Morbid (severe) obesity due to excess calories; B96.89 Other specified bacterial agents as the cause of diseases classified elsewhere ==